=== PATIENT | female | born 1980 | race American Indian/Alaskan Native ===

== ENCOUNTER 2016-06-17 23:38 | Emergency (ER) | payer MEDICAID ==
[2016-06-17 23:54] VITALS: BP 112/76
[2016-06-18 04:00] LABS: Bilirubin,Urine NEG (Negative); Blood,Urine SM (Negative); Ketones,Urine NEG (Negative); Leukocyte Esterase,Urine LG (Negative); Mucus,Urine FEW /HPF; Nitrite,Urine NEG (Negative); Protein,Urine <15 mg/dL mg/dL (Negative); Urobilinogen,Urine < 2.0 mg/dL (<2.0)
--- NOTE | 2016-06-18 05:17 | Emergency Department Report ---
Chief Complaint: Urogenital-Female Stated Complaint: VAGINAL DISCHARGE Time Seen by Provider: 06/18/16 05:10 - HPI History of Present Illness: 35-year-old female comes in for vaginal discharge that started yesterday. Patient denies any nausea vomiting she denies any abdomen pain. She reports that the vaginal discharge has no order no bleeding. Denies any dysuria. She reports she it is just uncomfortable. - Exam Vital Signs: Vital Signs 06/17/16 23:50 Temperature 98.3 F Pulse Rate 73 Respiratory 20 Rate Blood Pressure 112/76 O2 Sat by Pulse 100 Oximetry Physical Exam: Patient is alert oriented 3 in no acute distress MSE screening note: Focused history and physical exam performed. Due to findings the following was ordered: The patient's best for her to follow with her primary care provider or the health department. He verbalized understanding ED Disposition for MSE Condition: Stable Referrals: CORA JUNIOR MD [Primary Care Provider] - 3-5 Days
== END 2016-06-18 06:07 | disposition left against medical advice (07) ==
LOC: ED 23:38
DX: N89.8 Other specified noninflammatory disorders of vagina (principal); Z53.21 Procedure and treatment not carried out due to patient leaving prior to being seen by health care provider
CPT/HCPCS: 81001; 81025